=== PATIENT | male | born 1995 | race Caucasian/White ===

== ENCOUNTER 2021-08-14 16:31 | Emergency (ER) | payer BC ==
[~2021-08-14 16:31] MED LIST: KEFLEX500 MG PO; MULTI-VITAMIN1 EACH PO
[2021-08-14 17:31] LABS: HEMOGLOBIN 14.5 gm/dl (14.0-17.5); RED BLOOD COUNT 4.74 M/UL (4.20-5.50)
[2021-08-14 17:53] LABS: BUN/CREATININE RATIO 9 (0-10)
[2021-08-14] MEDS ORDERED: IBUPROFEN600 MG PO (18:59)
== END 2021-08-14 19:20 | disposition home or self-care (01) ==
LOC: ER1 16:31
PROVIDERS: Physician Assistant
DX: R07.89 Other chest pain (principal); V00.838A Other accident with motorized mobility scooter, initial encounter
CPT/HCPCS: 71045; 71260; 80053; 82550; 82553; 83874; 84484; 85025; 93005; 99285; Q9967